=== PATIENT | male | born 1960 | race Caucasian/White ===

== ENCOUNTER 2018-06-24 13:57 | Emergency (ER) | payer OTHER, BC ==
[2018-06-24] MEDS ORDERED: Albuterol/Ipratropium 3.0-0.5 MG/3 ML Neb Soln NEB ONE (14:21)
--- NOTE | 2018-06-24 14:24 | EDM.PDOC ---
ED HPI GENERAL MEDICAL PROBLEM - General Chief Complaint: Respiratory Problem Stated Complaint: n Time Seen by Provider: 06/24/18 14:20 Source of Information: Reports: Patient History Limitations: Reports: No Limitations - History of Present Illness INITIAL COMMENTS - FREE TEXT/NARRATIVE: HISTORY AND PHYSICAL: History of present illness: Patient is a 57-year-old male who presents to the emergency room today with complaints of right posterior chest pain. He states he notices this pain when he takes large movements, sneezes or coughs. He has had pneumonia previously and states the pain feels very similar. He is a pack per day smoker. Normally does not have a cough associated with his smoking use. Over the past 2 days he has had green phlem associated with this cough. Review of systems: As per history of present illness and below otherwise all systems reviewed and negative. Past medical history: As per history of present illness and as reviewed below otherwise noncontributory. Surgical history: As per history of present illness and as reviewed below otherwise noncontributory. Social history: No reported history of drug or alcohol abuse. Family history: As per history of present illness and as reviewed below otherwise noncontributory. Physical exam: General: Well-developed and well-nourished 57-year-old male. Alert and oriented. Nontoxic appearing and in no acute distress. HEENT: Atraumatic, normocephalic, pupils equal and reactive bilaterally, negative for conjunctival pallor or scleral icterus, mucous membranes moist, throat clear, neck supple, nontender, trachea midline. No drooling or trismus noted. No meningeal signs Lungs: Posterior bases diminished with auscultation, breath sounds equal bilaterally, chest nontender. Heart: S1S2, regular rate and rhythm without overt murmur Abdomen: Soft, nondistended, nontender. Negative for masses or hepatosplenomegaly. Negative for costovertebral tenderness. Pelvis: Stable nontender. Genitourinary: Deferred. Rectal: Deferred. Skin: Intact, warm, dry. No lesions or rashes noted. Extremities: Atraumatic, negative for cords or calf pain. Neurovascular unremarkable. Neuro: Awake, alert, oriented. Cranial nerves II through XII unremarkable. Cerebellum unremarkable. Motor and sensory unremarkable throughout. Exam nonfocal. Notes: Chest x-ray shows no evidence of pneumonia. Due to the patient's history and current status of smoking and penetrated with a Z-Yvan, Medrol Dosepak and Proventil inhaler. We reviewed supportive care measures. He voices understanding and is agreeable to plan of care. Denies any further questions or concerns at this time. Diagnostics: X-ray Therapeutics: DuoNeb Prescription: Medrol Dosepak Zpack Proventil HFA Impression: Bronchitis Plan: 1. Stop smoking. 2. Take your medications as directed. 3. Follow-up with your primary care provider in the next 1-2 days. Return to the ED as needed and as discussed. Definitive disposition and diagnosis as appropriate pending reevaluation and review of above. Right Chest Pain Score (Numeric/FACES): 7 - Related Data Allergies Allergy/AdvReac Type Severity Reaction Status Date / Time No Known Allergies Allergy Verified 11/24/15 19:42 Home Meds: Home Meds Naproxen Sodium [Aleve] 2 tab PO ASDIRECTED PRN 09/07/16 [History] Azithromycin [Zithromax] 250 mg PO DAILY 5 Days #6 tab 06/24/18 [Rx] Ranitidine HCl [Ranitidine] 1 tab PO DAILY 06/24/18 [History] methylPREDNISolone [Medrol] 4 mg PO DAILY #1 dospk 06/24/18 [Rx] Past Medical History HEENT History: Reports: Other (See Below) Other HEENT History: top and bottom denture Cardiovascular History: Reports: None Respiratory History: Reports: Sleep Apnea Other Respiratory History: does not use CPAP Gastrointestinal History: Reports: Colon Polyp, GERD Genitourinary History: Reports: None Musculoskeletal History: Reports: Other (See Below) Other Musculoskeletal History: occasional shoulder and neck pain Neurological History: Reports: None Psychiatric History: Reports: None Endocrine/Metabolic History: Reports: Obesity/BMI 30+ Hematologic History: Reports: None Immunologic History: Reports: None Oncologic (Cancer) History: Reports: None - Infectious Disease History Infectious Disease History: Reports: Chicken Pox - Past Surgical History Head Surgeries/Procedures: Reports: None Musculoskeletal Surgical History: Reports: Shoulder Surgery Dermatological Surgical History: Reports: Other (See Below) Social & Family History - Family History HEENT: Reports: None Cardiac: Reports: None - Tobacco Use Smoking Status *Q: Current Every Day Smoker Years of Tobacco use: 30 Packs/Tins Daily: 1 - Caffeine Use Caffeine Use: Reports: Coffee - Recreational Drug Use Recreational Drug Use: No ED ROS GENERAL - Review of Systems Review Of Systems: ROS reveals no pertinent complaints other than HPI. ED EXAM, GENERAL - Physical Exam Exam: See Below (See dictation) Course - Vital Signs Last Recorded V/S: Last Vital Signs Temp 97.8 F 06/24/18 14:16 Pulse 90 06/24/18 14:16 Resp 18 06/24/18 14:16 BP 129/91 H 06/24/18 14:16 Pulse Ox 96 06/24/18 14:16 - Orders/Labs/Meds Orders: Active Orders 24 hr Category Date Time Status RT Aerosol Therapy [RC] ASDIRECTED Care 06/24/18 14:21 Active Chest 2V [CR] Stat Exams 06/24/18 14:21 Taken Meds: Medications Discontinued Medications Generic Name Dose Route Start Last Admin Trade Name Freq PRN Reason Stop Dose Admin Albuterol/Ipratropium 3 ml 06/24/18 14:21 06/24/18 14:30 Duoneb 3.0-0.5 Mg/3 Ml NEB 06/24/18 14:22 3 ml ONETIME ONE Administration Departure - Departure Time of Disposition: 15:34 Disposition: Home, Self-Care 01 Clinical Impression: Bronchitis - Discharge Information Prescriptions: Azithromycin [Zithromax] 250 mg PO DAILY 5 Days #6 tab methylPREDNISolone [Medrol] 4 mg PO DAILY #1 dospk Instructions: Acute Bronchitis, Adult, [id number] Referrals: PCP,None [Primary Care Provider] - Forms: ED Department Discharge Additional Instructions: The following information is given to patients seen in the emergency department who are being discharged to home. This information is to outline your options for follow-up care. We provide all patients seen in our emergency department with a follow-up referral. The need for follow-up, as well as the timing and circumstances, are variable depending upon the specifics of your emergency department visit. If you don't have a primary care physician on staff, we will provide you with a referral. We always advise you to contact your personal physician following an emergency department visit to inform them of the circumstance of the visit and for follow-up with them and/or the need for any referrals to a consulting specialist. The emergency department will also refer you to a specialist when appropriate. This referral assures that you have the opportunity for follow-up care with a specialist. All of these measure are taken in an effort to provide you with optimal care, which includes your follow-up. Under all circumstances we always encourage you to contact your private physician who remains a resource for coordinating your care. When calling for follow-up care, please make the office aware that this follow-up is from your recent emergency room visit. If for any reason you are refused follow-up, please contact the [facility] at and asked to speak to the emergency department charge nurse. [facility] [address] [place] [id number] 1. Stop smoking. 2. Take your medications as directed. 3. Follow-up with your primary care provider in the next 1-2 days. Return to the ED as needed and as discussed. - My Orders Last 24 Hours: My Active Orders 06/24/18 14:21 RT Aerosol Therapy [RC] ASDIRECTED Chest 2V [CR] Stat - Assessment/Plan Last 24 Hours: My Active Orders 06/24/18 14:21 RT Aerosol Therapy [RC] ASDIRECTED Chest 2V [CR] Stat
[2018-06-24 15:43] VITALS: BP 128/77
--- NOTE | 2018-06-26 14:33 | CR ---
EXAM DATE: 06/24/18 PATIENT'S AGE: 57 Patient: RUTH MCBRIDE Facility: [place], [place] Site . Site : [id number] Study: XRay Chest [id number] 3:20:27 PM Ordering Physician: Doctor Arevalo Final Report: Clinical INDICATION: Chest pain. Shortness of breath. FINDINGS: The cardiomediastinal silhouette, lung parenchyma, pulmonary vasculature and pleural surfaces are all normal again appearance. There is moderate hypertrophic spurring of the thoracic spine. IMPRESSION: No acute process identified. Dictated by Charles Haynes MD @ Jun 24 2018 4:00PM (Electronic Signature) Report Signed by Proxy. IRAM
== END 2018-06-24 15:44 | disposition home or self-care (01) ==
LOC: MW.ED 13:57
DX: J40 Bronchitis, not specified as acute or chronic (principal); F17.210 Nicotine dependence, cigarettes, uncomplicated; Z79.899 Other long term (current) drug therapy
CPT/HCPCS: 71046; 71046-26; 94640; 99285-25; J7620-GY

== ENCOUNTER 2022-03-16 22:21 | Emergency (ER) | payer BC, OTHER ==
[2022-03-16] MEDS ORDERED: Cocoa Butter/Phenylephrine Rectal Supp RECTAL ONE (23:14)
[2022-03-16 23:37] VITALS: BP 137/76; PULSE 84
== END 2022-03-16 23:37 | disposition home or self-care (01) ==
LOC: MW.ED 22:21
DX: K64.8 Other hemorrhoids (principal); E66.9 Obesity, unspecified; Z68.31 Body mass index [BMI] 31.0-31.9, adult
CPT/HCPCS: 99282; A9270

== ENCOUNTER 2024-03-03 21:26 | Emergency (ER) | payer OTHER ==
[2024-03-03] MEDS: Sodium Chloride 0.9% 2.5 ML Syringe FLUSH PRN (22:35)
[2024-03-03] MEDS: Sodium Chloride 0.9% 1,000 ML IV STA (22:35)
[2024-03-03] MEDS: Sodium Chloride 0.9% 10 ML Syringe FLUSH PRN (22:35)
[2024-03-03 22:40] LABS: BASOPHILS ABSOLUTE AUTO 0.05 K/uL (0.00-0.20); BASOPHILS PERCENT AUTO 0.4 % (0.0-1.0); EOSINOPHILS ABSOLUTE AUTO 0.07 K/uL (0.00-0.45); EOSINOPHILS PERCENT AUTO 0.6 % (0.0-6.0); HEMOGLOBIN 15.6 g/dL (14.0-18.0); IMMATURE GRAN ABSOLUTE AUTO 0.06 K/uL (0.00-0.05); IMMATURE GRAN PERCENT AUTO 0.5 % (0.0-0.4); LYMPHOCYTES PERCENT AUTO 12.3 % (24.0-44.0); MEAN CORPUSCULAR HEMOGLOBIN 29.1 pg (28.0-32.0); MEAN CORPUSCULAR HGB CONC 34.7 g/dL (32.0-36.0); MEAN CORPUSCULAR VOLUME 83.8 fL (83.0-99.0); MEAN PLATELET VOLUME 9.3 fL (9.4-12.4); MONOCYTES ABSOLUTE AUTO 0.65 K/uL (0.00-0.80); MONOCYTES PERCENT AUTO 5.3 % (0.0-8.0); NEUTROPHILS PERCENT AUTO 80.9 % (41.0-71.0); PLATELET COUNT,PLT 197 K/uL (150-400); RED BLOOD CELL COUNT 5.37 M/uL (4.52-5.90); WHITE BLOOD CELL COUNT,WBC 12.23 K/uL (3.9-11.3)
[2024-03-03 23:07] LABS: A/G RATIO 1.1 (0.9-1.6); ALBUMIN 3.5 g/dL (3.4-5.0); BILIRUBIN TOTAL 0.4 mg/dL (0.2-1.0); CALCIUM 8.7 mg/dL (8.5-10.1); CREATININE 1.3 mg/dL (0.8-1.3); EST CRCL DRUG DOSING (CG) 62.75 mL/min; POTASSIUM,K 3.7 mmol/L (3.5-5.1); PROTEIN TOTAL,TP 6.7 g/dL (6.4-8.2)
[2024-03-04 00:03] LABS: APPEARANCE,URINE CLEAR; BILIRUBIN,URINE NEGATIVE (NEGATIVE); COLOR,URINE YELLOW; GLUCOSE,URINE NEGATIVE (NEGATIVE); KETONES,URINE NEGATIVE (NEGATIVE); LEUKOCYTE ESTERASE,URINE NEGATIVE (NEGATIVE); NITRITE,URINE POSITIVE (NEGATIVE); OCCULT BLOOD,URINE NEGATIVE (NEGATIVE); PH,URINE 6.5 (5.0-8.0); PROTEIN,URINE NEGATIVE (NEGATIVE); UROBILINOGEN,URINE 0.2 EU/dL (<2.0)
[2024-03-04 00:15] LABS: RBC,URINE 0-1 (0-2/HPF)
[2024-03-04 00:16] LABS: BACTERIA,URINE FEW (NEGATIVE); MUCUS,URINE LIGHT (NONE-MOD); SQUAMOUS EPITHELIAL CELLS,UR NOT SEEN
[2024-03-04] MEDS: Aspirin 81 MG Tab.Chew PO ONE (01:02)
[2024-03-04] MEDS: Iopamidol 755 MG/ML 500 ML Multipack Bottle IVPUSH STA (01:08)
[2024-03-04 01:22] VITALS: BP 133/88; PULSE 72
== END 2024-03-04 01:39 ==
LOC: MW.ED 21:26
DX: R42 Dizziness and giddiness (principal); R11.10 Vomiting, unspecified; Z75.8 Other problems related to medical facilities and other health care
CPT/HCPCS: 36415; 70450; 70496; 70498; 71045; 80053; 81001; 82947; 83690; 84484; 85025; 87086; 93005; 96360; 96361; 99285; A9270; J3490; J7030; Q9967; 93010